=== PATIENT | female | born 1995 | race Hispanic/Latino ===

== ENCOUNTER 2019-05-21 17:05 | Emergency (ER) | payer OTHER ==
[~2019-05-21] VITALS: Ht 170.2 cm; Wt 109.3 kg
[2019-05-21] MEDS ORDERED: KETOROLAC TROMETHAMINE 60 MG/2 ML VIAL IM ONE (17:30)
[2019-05-21] MEDS ORDERED: MORPHINE SULFATE INJ 4 MG/ML INJ 1ML IM PRN (18:45)
--- NOTE | 2019-05-21 18:59 | Diagnostic Imaging Report ---
EXAM: CT Abdomen and Pelvis WITHOUT contrast INDICATION: Abdominal/pelvic pain ^[id number] ^[id number] COMPARISON: None. TECHNIQUE: Abdomen and pelvis were scanned utilizing a multidetector helical scanner from the lung base to the pubic symphysis without administration of IV contrast. Absence of intravenous contrast decreases sensitivity for detection of focal lesions and vascular pathology. Coronal and sagittal reformations were obtained. Routine protocol was performed. Dose modulation, iterative reconstruction, and/or weight based adjustment of the mA/kV was utilized to reduce the radiation dose to as low as reasonably achievable. IV CONTRAST: None. ORAL CONTRAST: None RADIATION DOSE: Total DLP: 828.67 mGy*cm Estimated effective dose: (DLP x 0.015 x size factor) mSv COMPLICATIONS: None FINDINGS: LINES and TUBES: None. LOWER THORAX: Lung bases clear. Heart size normal. A small hiatus hernia is noted. HEPATOBILIARY: No focal hepatic lesions. No biliary ductal dilation. GALLBLADDER: No radio-opaque stones or sludge. No wall thickening. SPLEEN: No splenomegaly. PANCREAS: No focal masses or ductal dilatation. ADRENALS: No adrenal nodules KIDNEYS/URETERS: No hydronephrosis. No cystic or solid mass lesions. No stones. GI TRACT: No abnormal distention, wall thickening, or evidence of bowel obstruction. Appendix is normal. PELVIC ORGANS/BLADDER: There is a rounded mass measuring 14.6 x 10.3 cm transversely and 13.7 cm longitudinally which appears to arise from the uterine fundus or possibly left adnexa. Portions of this mass are relatively radiodense suggesting calcification, less likely hemorrhage. Urinary bladder appears unremarkable. There is no free fluid in the pelvis. LYMPH NODES: No dominant lymph node mass is seen in the abdomen, retroperitoneum or pelvis. VESSELS: There are scattered mildly prominent nodes in the mesentery and right lower quadrant, for example measuring 7 mm adjacent to the cecum (image 102). PERITONEUM / RETROPERITONEUM: No pneumoperitoneum or ascites. BONES: No acute or suspicious bony lesions. SOFT TISSUES: Superficial surrounding soft tissue unremarkable. IMPRESSION: 1. There is a mass measuring up to 14.6 cm arising from either the uterine fundus or left adnexa. The mass does contain areas of density along its inferior aspect, possibly calcification or hemorrhage. This may be further characterized by pelvic ultrasound. 2. There are scattered mildly prominent subcentimeter lymph nodes in the mesentery, likely reactive nodes. No dominant lymphadenopathy is seen. No free fluid is seen in the abdomen or pelvis. Staff: Geo Signed by: Dr. Oleg Guardado M.D. on 05/21/2019 6:56 PM
--- NOTE | 2019-05-21 20:26 | Diagnostic Imaging Report ---
ADDENDUM #1 Addendum: The left ovary could not be visualized due to intervening bowel gas on this transabdominal pelvic ultrasound. Signed by: Dr. Oleg Guardado M.D. on 05/26/2019 11:08 AM ORIGINAL REPORT EXAM: Transabdominal Pelvic Ultrasound INDICATION: Pelvic pain ^[id number] ^[id number] COMPARISON: CT abdomen/pelvis, 05/21/2019 TECHNIQUE: Grayscale transverse and sagittal transabdominal images were obtained of the pelvis. CLINICAL HISTORY: 23 year old A0; last menstrual period: 02/05/2019. FINDINGS: Uterus Orientation: Normal Size: 7.3 x 3.5 x 4.4 cm, Normal Mass: None Cervix: Normal Endometrium: Difficult to visualize due to intervening bowel and lack of bladder distention. Right ovary: Size: 2.5 x 2.3 x 2.6 cm Mass/Cyst: There is a large mass which appears to arise from the right adnexa measuring up to 12.6 x 9.1 x 13.6 cm. The mass is hypoechoic and may be largely cystic but contains internal septations or debris. Left ovary: Not visualized Cul-de-sac: No free fluid IMPRESSION: Large complex cystic mass in the pelvis, possibly arising from the right adnexa. This is of indeterminate etiology. Consider gynecologic evaluation and possibly pelvic MRI for further characterization of the mass. Signed by: Dr. Oleg Guardado M.D. on 05/21/2019 8:22 PM
== END 2019-05-21 21:05 | disposition home or self-care (01) ==
LOC: FSED 17:05
DX: R10.32 Left lower quadrant pain (principal); R19.09 Other intra-abdominal and pelvic swelling, mass and lump
CPT/HCPCS: 74176; 76856; 80053; 85025; 99284; J1885

== ENCOUNTER 2021-01-24 12:19 | Emergency (ER) | payer SELFPAY ==
[~2021-01-24] VITALS: Ht 170.2 cm; Wt 115.7 kg
[2021-01-24] MEDS ORDERED: KETOROLAC TROMETHAMINE 30 MG/ML VIAL IV STA ×2 (12:44→14:02)
[2021-01-24] MEDS ORDERED: ONDANSETRON HCL INJ 2MG/ML 2ML 2 MG/ML VIAL IV STA (12:44)
[2021-01-24] MEDS ORDERED: MORPHINE SULFATE INJ 4 MG/ML INJ 1ML IV ONE (12:45)
[2021-01-24] MEDS ORDERED: ONDANSETRON HCL INJ 2MG/ML 2ML 2 MG/ML VIAL ONE (13:00)
[2021-01-24] MEDS ORDERED: KETOROLAC TROMETHAMINE 30 MG/ML VIAL ONE ×2 (13:00→14:21)
[2021-01-24] MEDS ORDERED: MORPHINE SULFATE INJ 4 MG/ML INJ 1ML ONE (13:01)
[2021-01-24] MEDS ORDERED: CEFTRIAXONE 1 GM VIAL IV ONE (14:00)
[2021-01-24] MEDS ORDERED: CEFDINIR300 MG PO (14:10)
[2021-01-24] MEDS ORDERED: FLOMAX0.4 MG PO (14:10)
[2021-01-24] MEDS ORDERED: KETOROLAC TROME10 MG PEG (14:10)
[2021-01-24] MEDS ORDERED: CEFTRIAXONE 1 GM VIAL ONE (14:21)
[2021-01-24] MEDS ORDERED: CEFTRIAXONE 1 GM in SODIUM CHLORIDE 0.9% 50ML 50 ML IV ONE (14:30)
== END 2021-01-24 14:48 | disposition home or self-care (01) ==
LOC: FSED 12:46
DX: N20.1 Calculus of ureter (principal); N23 Unspecified renal colic
CPT/HCPCS: 74176; 99284; J0696; J1885; J2270; J2405

== ENCOUNTER 2022-09-29 10:38 | Emergency (ER) | payer OTHER ==
[~2022-09-29] VITALS: Ht 170.2 cm; Wt 118.0 kg
[~2022-09-29 10:38] MED LIST: CEFDINIR300 MG PO; FLOMAX0.4 MG PO; KETOROLAC TROME10 MG PEG
[2022-09-29] MEDS ORDERED: SODIUM CHLORIDE 0.9% 1000ML 1,000 ML IV STA (11:05)
[2022-09-29] MEDS ORDERED: ONDANSETRON HCL INJ 2MG/ML 2ML 2 MG/ML VIAL IV STA (11:05)
[2022-09-29] MEDS ORDERED: Morphine 4mg INJECTION 4 MG/ML INJ IV STA (11:05)
[2022-09-29] MEDS ORDERED: OMEPRAZOLE40 MG PO (11:06)
[2022-09-29] MEDS ORDERED: PROAIR DIGIHAL90 MCG (11:06)
[2022-09-29] MEDS ORDERED: IOPAMIDOL 370 MG/ML 100 ML INFUS..BTL INJ ONE (11:07)
[2022-09-29] MEDS ORDERED: ONDANSETRON HCL INJ 2MG/ML 2ML 2 MG/ML VIAL ONE (11:15)
[2022-09-29] MEDS ORDERED: Morphine 4mg INJECTION 4 MG/ML INJ ONE (11:16)
[2022-09-29] MEDS ORDERED: SODIUM CHLORIDE 0.9% 1000ML 1,000 ML ONE (11:16)
[2022-09-29] MEDS ORDERED: ULTRAM 50MG50 MG PO (12:01)
== END 2022-09-29 12:13 | disposition home or self-care (01) ==
LOC: FSED 10:46
DX: R10.31 Right lower quadrant pain (principal); N83.201 Unspecified ovarian cyst, right side; K21.9 Gastro-esophageal reflux disease without esophagitis; K76.0 Fatty (change of) liver, not elsewhere classified; J45.909 Unspecified asthma, uncomplicated
CPT/HCPCS: 74177; 80048; 80076; 81003; 81025; 85025; 96374; 96375; 99284; J2270; J2405; J7030; Q9967